=== PATIENT | female | born 1940 | race Caucasian/White ===

== ENCOUNTER → 2017-06-10 | Day surgery (SDC) | payer OTHER, MEDICAID ==
[~2017-06-10] MED LIST: AMMO12CR4 TOPICAL; AZEL1SPR2 EACH NARE; CALC1TAB87 PO; CRANCAP2 PO; FAMO40TA PO; FLUT1INH INH; FLUT1SPR5 EACH NARE; IPRASOL INH; LACTATED RINGER'S 1000 ML INJ 1,000 ML ONE; LIPI20TA PO; METO25TA6 PO; MIRA50TA PO; OMEP40CA2 PO; PROPOFOL 200 MG/20 ML AMP IV ONE; VENTAER INH; VITA10002 PO; VITA200013 PO; ZANT150T2 PO; ZOLE5P IV
--- NOTE | 2017-06-10 12:04 | GIPROC ---
[facility] [address] [facility], [address] EGD PROCEDURE REPORT EXAM DATE: 06/10/2017 PATIENT NAME: Tamra Becerra MR #: [id number] BIRTHDATE: 1940 ATTENDING: Jamel Marte MD ORDER #: [id number] IMPROVEMENT RN: Phil Mcgovern RN STATUS: outpatient INDICATIONS: The patient is a 77 yr old female here for an EGD due to dyspepsia and dysphagia PROCEDURE PERFORMED: EGD w/ dilation of esophagus via guidewire MEDICATIONS: None and Per Anesthesia. TOPICAL ANESTHETIC: CONSENT: The patient understands the risks and benefits of the procedure and understands that these risks include, but are not limited to: sedation, allergic reaction, infection, perforation and/or bleeding. Alternative means of evaluation and treatment include, among others: physical exam, x-rays, and/or surgical intervention. The patient elects to proceed with this endoscopic procedure. medical equipment was checked for proper function. Hand hygiene and appropriate measures for infection prevention was taken. After the risks, benefits and alternatives of the procedure were thoroughly explained, Informed consent was verified, confirmed and timeout was successfully executed by the treatment team. The patient was anesthetized with topical anesthesia and the EC-2990i ([id number]) endoscope was introduced through the mouth and advanced to the second portion of the duodenum. Retroflexed views revealed a hiatal hernia The gastroscope was then slowly withdrawn and removed. ESOPHAGUS: There was LA Class A esophagitis noted. The stricture was dilated using a 17mm (51Fr) savary dilator over guidewire. STOMACH: There was erythematous moderate gastritis in the gastric body. DUODENUM: The duodenal mucosa appeared normal in the bulb and second portion of the duodenum. ADVERSE EVENTS: There were no complications. IMPRESSIONS: 1. There was LA Class A esophagitis noted; The stricture was dilated using a 17mm (51Fr) savary dilator over guidewire 2. There was erythematous gastritis in the gastric body 3. Normal duodenal mucosa in the bulb and second portion of the duodenum 4. Retroflexed views revealed a hiatal hernia RECOMMENDATIONS: 1. Anti-reflux regimen 2. Continue PPI 3. Follow-up: GI clinic 3 week(s) PATIENT CONDITION: stable DISPOSITION: Home REPEAT EXAM: Return 1 year EGD with dilatation Jamel Marte MD eSigned: Jamel Marte MD 06/10/2017 12:03 PM cc: [facility] M.D. PATIENT NAME: BecerraTamra MR#: [id number]
== END | disposition home or self-care (01) ==
LOC: ESDC 10:27
PROVIDERS: ATTEND Internal Medicine Gastroenterology
DX: R10.13 Epigastric pain (principal); R13.10 Dysphagia, unspecified; K44.9 Diaphragmatic hernia without obstruction or gangrene; K20.9 Esophagitis, unspecified; K22.2 Esophageal obstruction; K29.70 Gastritis, unspecified, without bleeding
CPT/HCPCS: 00740; 43248; J3010; J7120